=== PATIENT | female | born 1945 | race Caucasian/White ===

== ENCOUNTER 2016-07-21 13:06 | Day surgery (SDC) | payer MEDICARE, BC, OTHER ==
[2016-07-19 10:32] LABS: HEMATOCRIT 44.3 % (36.0-48.0); HEMOGLOBIN 15.2 g/dL (12.0-16.0)
[2016-07-19 10:40] LABS: BUN (BLOOD UREA NITROGEN) 17 MG/DL (6-23); CALCIUM, SERUM 9.1 MG/DL (8.5-10.4); CHLORIDE, SERUM 103 MMOL/L (96-112); CO2 (CARBON DIOXIDE) 28 MMOL/L (24-34); CREATININE 1.13 MG/DL (0.55-1.02); GFR AFRICAN AMERICAN 57 ML/MIN (>=60); GFR NON AFRICAN AMERICAN 49 ML/MIN (>=60); GLUCOSE, SERUM 212 MG/DL (60-99); POTASSIUM, SERUM 4.3 MMOL/L (3.5-5.3); SODIUM, SERUM 139 MMOL/L (135-148)
--- NOTE | ~2016-07-21 | OP ---
Record Of Operation [facility] [address] [place]. [address] NAME: MAYA GALLO : 45 STATUS : [facility]#: [id number] AGE: 71 ADM/REG DATE : 07/21/16 MR#: [id number] REPORT SERV DATE: 07/22/16 DICTATED BY: Mame DANIELLE DATE: 07/21/16 REPORT STATUS : Draft TRANSCRIBED BY: RUBIN DATE: 07/21/16 DATE OF PROCEDURE: 07/21/2016 PREOPERATIVE DIAGNOSES: 1. 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 2. Defect of the left nasal supratip secondary to Mohs micrographic surgical excision of basal cell carcinoma. POSTOPERATIVE DIAGNOSES: 1. 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 2. Defect of the left nasal supratip secondary to Mohs micrographic surgical excision of basal cell carcinoma. NAME OF OPERATION: 1. Surgical excisional preparation of left nasal supratip defect. 2. Reconstruction of left nasal supratip defect with rotation flap closure. FINDINGS: A 6.5 mm wide x 7 mm tall defect of the left nasal supratip, with medial edge of the defect at the midline, adjacent to two recently biopsied slightly crusted lesions. INDICATIONS: This 71-year-old female had a biopsy-proven basal cell carcinoma of the left nasal supratip removed by Mohs micrographic surgical technique today. This resulted in a defect that we now plan to repair. At a separate consultation in my office prior to the Mohs surgery, the pros and cons, alternatives, benefits, risks, limitations, and complications of reconstruction of the anticipated defect were discussed at length. When I initially saw our, I also was concerned that she might have some other cancerous areas and advised that they be biopsied, and they both proved to be benign actinic lesions. She now presents for reconstruction. No guarantees expressed. She understands and wishes to proceed. She is a diabetic and also takes blood thinner and will be restarted on her blood thinner postoperatively. She is currently taking clindamycin for dental reasons and she can continue this postoperatively. She wishes to proceed. Proper consent obtained. No guarantees expressed. DESCRIPTION OF PROCEDURE: She was taken into the operating room and given general oroendotracheal anesthesia in the supine position. The dressing on her nose was removed revealing the nasal defect. The nose and face were prepped with Hibiclens and saline followed by isopropyl alcohol. None of these solutions got into her eyes. None of the alcohol got in the wound. Sterile drapes were applied. The beveled edges were marked out for surgical excision. The defect measured as stated above. A long fusiform excision of the beveled edges and nasal tissue cephalad and caudal to the defect were marked out to facilitate closure. The nose was injected with 1% Xylocaine with 1:100,000 epinephrine and 0.5% Marcaine with 1:200,000 epinephrine. Five minutes elapsed for vasoconstriction. According to the markings, the #15 blade was used to excise the triangles of skin above and Record Of Operation [address] [place]. [address] NAME: MAYA GALLO : 45 STATUS : [facility]#: [id number] AGE: 71 ADM/REG DATE : 07/21/16 MR#: [id number] REPORT SERV DATE: 07/22/16 DICTATED BY: Mame DANIELLE DATE: 07/21/16 REPORT STATUS : Draft TRANSCRIBED BY: RUBIN DATE: 07/21/16 below the defect including the beveled edges of the defect medially and laterally, thus surgically excisionally preparing the wound for flap closure. This tissue was removed. Hemostasis was obtained with the [employer] needle tip cautery. Next, rotation flaps were felt bilaterally, approximately 2 cm x 3.5 cm on each side. These rotation flaps were rotated upon themselves to close the wound and avoid nostril asymmetry. Closure was deep with the flaps coapted with 5-0 Vicryl. The skin was coapted with 6-0 Prolene. The wound was cleansed with hydrogen peroxide and dried. Mastisol and paper tape were applied in an antitension fashion. She tolerated the procedure well. She was awakened, extubated, and taken to recovery room in good condition having tolerated the procedure well. Home going instructions includes leaving the tape dry and intact and rechecking in the office in six days. Prescriptions were written for hydrocodone 7.5 mg/325 APAP, #21 p.o. q.4-6 h. p.r.n. pain; generic Zofran 8 mg ODT, #9, one dissolved orally q.6 hours p.r.n. nausea or vomiting; prescription for cefdinir 300 mg, #20, one p.o. b.i.d., which she will start after she finishes her clindamycin. SUNNI/RUBIN Mame Danielle M.D. / [id number] CC: Xu Sutton M.D.
[~2016-07-21 13:06] MED LIST: ACIPHEX PO; ASAB PO; CLINDAMYCIN; CORDARONE PO; CYMBALTA60 PO; GLUCPH PO; JANUVIA100 MG PO; LANTUS SC; LEVOTHYROXIN50 MCG PO; LEXAPRO10 PO; MIRAPEX5 PO; MULTIVITAMI1 PO; PLAVIX PO; PR25 PO; PROSCAR5 PO; SPIRO25 PO; TOPXL100 PO; TRESIBA FL100 UNIT/1 IM/SC; ULTRAM ER300 MG PO; VITD PO; XARELTO20 MG
== END 2016-07-21 21:23 | disposition home or self-care (01) ==
LOC: SDC 13:06
PROVIDERS: Specialist
PROC: 0HX1XZZ Transfer Face Skin, External Approach (ICD-10-PCS; principal; 2016-07-21 13:00)
DX: Z42.8 Encounter for other plastic and reconstructive surgery following medical procedure or healed injury (principal); C44.311 Basal cell carcinoma of skin of nose; L71.9 Rosacea, unspecified; I48.91 Unspecified atrial fibrillation; I10 Essential (primary) hypertension; G25.81 Restless legs syndrome; M19.90 Unspecified osteoarthritis, unspecified site; K21.9 Gastro-esophageal reflux disease without esophagitis; H35.30 Unspecified macular degeneration; D33.3 Benign neoplasm of cranial nerves; F41.9 Anxiety disorder, unspecified; F32.9 Major depressive disorder, single episode, unspecified; E11.9 Type 2 diabetes mellitus without complications; E03.9 Hypothyroidism, unspecified; E66.01 Morbid (severe) obesity due to excess calories; Z68.42 Body mass index [BMI] 45.0-49.9, adult; Z88.0 Allergy status to penicillin; Z88.1 Allergy status to other antibiotic agents; Z88.2 Allergy status to sulfonamides; Z88.8 Allergy status to other drugs, medicaments and biological substances; Z91.048 Other nonmedicinal substance allergy status; Z79.4 Long term (current) use of insulin; Z79.84 Long term (current) use of oral hypoglycemic drugs; Z79.01 Long term (current) use of anticoagulants; Z79.891 Long term (current) use of opiate analgesic; Z79.2 Long term (current) use of antibiotics; Z79.899 Other long term (current) drug therapy; Z90.89 Acquired absence of other organs; Z98.41 Cataract extraction status, right eye; Z98.42 Cataract extraction status, left eye; Z96.653 Presence of artificial knee joint, bilateral; Z98.890 Other specified postprocedural states; Z90.710 Acquired absence of both cervix and uterus
CPT/HCPCS: 80048; 82962; 85014; 85018; 93005; A9270-GY; J0690; J2250; J2405; J2710; J3010